=== PATIENT | male | born 1990 | race Caucasian/White ===

== ENCOUNTER → 2020-11-05 | Outpatient (REF) | payer OTHER, SELFPAY ==
[2020-11-05 15:38] LABS: GC DNA AMPLIFICATION NEGATIVE (NEGATIVE)
== END ==
LOC: M SMT 12:55
PROVIDERS: ATTEND Nurse Practitioner Women's Health
DX: Z11.3 Encounter for screening for infections with a predominantly sexual mode of transmission (principal)
CPT/HCPCS: 87491; 87591; G0463

== ENCOUNTER → 2022-06-09 | Outpatient (REF) | payer OTHER | LOC: M SMT 12:54 | PROVIDERS: ATTEND Urology | DX: N48.89 Other specified disorders of penis (principal) ==

== ENCOUNTER → 2024-09-12 | Outpatient (CLI) | payer OTHER | LOC: M SOG 06:58 | PROVIDERS: ATTEND Physician Assistant | DX: Z53.9 Procedure and treatment not carried out, unspecified reason (principal) ==

== ENCOUNTER 2024-10-13 06:42 | Day surgery (SDC) | payer OTHER ==
[~2024-10-13] VITALS: Ht 185.4 cm; Wt 95.7 kg
[2024-10-13] MEDS ORDERED: dexmedeTOMIDine (4 MCG/ML) 200 MCG/50 ML BTL As Ordered ONE (07:06)
[2024-10-13] MEDS ORDERED: dexAMETHasone 4 MG/ML 1 ML VIAL As Ordered ONE (07:06)
[2024-10-13] MEDS ORDERED: ONDANSETRON 4MG 2ML VIAL As Ordered ONE (07:06)
[2024-10-13] MEDS ORDERED: LIDOCAINE 2% 100 MG/5 ML SDV (FOR ANES.) As Ordered ONE (07:06)
[2024-10-13] MEDS ORDERED: LR 1,000 ML IV SCH (07:20)
[2024-10-13] MEDS ORDERED: MIDAZOLAM INJ 2 MG/2 ML VIAL As Ordered ONE (08:15)
[2024-10-13] MEDS ORDERED: ACETAMINOPHEN 1000MG/100ML IV BAG As Ordered ONE (09:00)
[2024-10-13] MEDS ORDERED: KETOROLAC 30 MG/ML 1 ML VIAL As Ordered ONE (09:02)
[2024-10-13] MEDS ORDERED: ONDANSETRON 4MG 2ML VIAL IV PRN (09:20)
[2024-10-13 10:30] VITALS: BP 130/71; TEMP 96.7; O2SAT 100
== END 2024-10-13 10:34 | disposition home or self-care (01) ==
LOC: M SDC 06:42
PROVIDERS: ATTEND Orthopaedic Surgery Hand Surgery
DX: G56.02 Carpal tunnel syndrome, left upper limb (principal); Z87.891 Personal history of nicotine dependence
CPT/HCPCS: 29848; J0131; J0665; J1100; J1885; J2250; J2405; J3010

== ENCOUNTER 2025-01-22 08:09 | Day surgery (SDC) | payer OTHER ==
[~2025-01-22] VITALS: Ht 182.9 cm; Wt 100.6 kg
[~2025-01-22 08:09] MED LIST: LIDOCAINE 2% 100 MG/5 ML SDV (FOR ANES.) As Ordered ONE; MIDAZOLAM INJ 2 MG/2 ML VIAL As Ordered ONE
[2025-01-22] MEDS ORDERED: KETOROLAC 30 MG/ML 1 ML VIAL As Ordered ONE (09:15)
[2025-01-22] MEDS ORDERED: ONDANSETRON 4MG/2ML VIAL As Ordered ONE (09:15)
[2025-01-22] MEDS ORDERED: dexAMETHasone 4 MG/ML 1 ML VIAL As Ordered ONE (09:15)
[2025-01-22] MEDS ORDERED: HYDROMORPHONE HCL 0.5 MG/0.5 ML SYRINGE IV PRN (09:35)
[2025-01-22] MEDS ORDERED: ONDANSETRON 4MG/2ML VIAL IV PRN (09:35)
[2025-01-22] MEDS ORDERED: LR 1,000 ML IV SCH (09:35)
[2025-01-22 10:15] VITALS: BP 120/73; TEMP 97.3; O2SAT 100
== END 2025-01-22 10:30 | disposition home or self-care (01) ==
LOC: M SDC 08:09
PROVIDERS: ATTEND Orthopaedic Surgery Hand Surgery
DX: G56.01 Carpal tunnel syndrome, right upper limb (principal)
CPT/HCPCS: 29848; J0665; J1100; J1885; J2250; J2405; J3010